=== PATIENT | female | born 1990 | race Hispanic/Latino ===

== ENCOUNTER 2023-05-21 17:31 | Emergency (ER) | payer OTHER ==
[~2023-05-21] VITALS: Ht 167.6 cm; Wt 93.0 kg
[2023-05-21] MEDS ORDERED: KETOROLAC 60 MG VIAL (30MG/ML) IM ONE (18:00)
[2023-05-21] MEDS ORDERED: IBUP-2070 PO (18:40)
[2023-05-21 19:00] VITALS: BP 126/74; PULSE 68; RESP 18; O2SAT 98
== END 2023-05-21 19:16 | disposition home or self-care (01) ==
LOC: EDH 17:31
DX: S20.211A Contusion of right front wall of thorax, initial encounter (principal); Z98.890 Other specified postprocedural states; X58.XXXA Exposure to other specified factors, initial encounter; Y93.89 Activity, other specified; Y92.89 Other specified places as the place of occurrence of the external cause; Y99.8 Other external cause status
CPT/HCPCS: 99283; 73000; 96372; J1885